=== PATIENT | female | born 1965 | race Caucasian/White ===

== ENCOUNTER → 2016-12-05 | Outpatient (CLI) | payer OTHER ==
[~2016-12-05] MED LIST: IOPAMIDOL (ISOVUE-300) 100 ML BTL IV ONE
--- NOTE | 2016-12-05 13:10 | CT ---
CT Abdomen and Pelvis With Contrast History: Left lower quadrant pain, elevated white count. Comparison: None available. Technique: Axial contrast-enhanced images were obtained through the abdomen and pelvis following the uneventful administration of oral and 95 mL Isovue-300 intravenous contrast. Dose reduction techniqu es were utilized. Findings Abdomen: The lung bases are clear. Heart size is normal. There is trace pericardial fluid. The liver is normal. The high attenuation material in the gallbladder suggests cholelithiasis, withou t evidence of cholecystitis. The spleen is upper normal in size. The pancreas, adrenals, and kidneys are normal. There is a tubular blind ending structure extending from the distal small bowel toward the umbilicus (series 3, image 262), consistent with a Meckel's diverticulum. There is inflammation and mild thicke brandon associated with a diverticulum in the mid descending colon with pericolonic stranding, consisten t with diverticulitis. There is no free air or abscess. The colon and small bowel are normal caliber without evidence of obstruction. The appendix is normal. The aorta is normal caliber. The IVC, hepatic, portal, splenic, and superior mesenteric veins are pat ent. No pathologically enlarged lymph nodes are identified. Mild degenerative change is present in the spine. Pelvis: The bladder is normal. The uterus is surgically absent. No adnexal masses are identified. No aggressive osseous lesions are identified. Impression: 1. Diverticulitis of the descending colon without perforation or abscess. 2. Meckel's diverticulum. 3. Cholelithiasis without evidence of cholecystitis. 4. Borderline splenomegaly. 5. Additional findings as above. Findings discussed with Savannah Soto today at 1245 hours.
== END ==
LOC: FIMAGING 10:04
PROVIDERS: ATTEND Physician Assistant
DX: Q43.0 Meckel's diverticulum (displaced) (hypertrophic) (principal); K80.20 Calculus of gallbladder without cholecystitis without obstruction; R16.1 Splenomegaly, not elsewhere classified
CPT/HCPCS: Q9967

== ENCOUNTER → 2017-03-14 | Outpatient (CLI) | payer OTHER | LOC: FIMAGING 10:07 | PROVIDERS: ATTEND Obstetrics & Gynecology | DX: Z12.31 Encounter for screening mammogram for malignant neoplasm of breast (principal) | CPT/HCPCS: G0202 ==